=== PATIENT | female | born 1970 | race Caucasian/White ===

== ENCOUNTER → 2024-03-05 10:32 | Outpatient (REF) | payer BC, SELFPAY | LOC: WDC 10:32 | PROVIDERS: ATTENDING PHYSICIAN Obstetrics & Gynecology; FAMILY PHYSICIAN Family Medicine | DX: Z12.31 Encounter for screening mammogram for malignant neoplasm of breast (principal) | CPT/HCPCS: 77063; 77067 ==

== ENCOUNTER → 2025-03-27 13:02 | Outpatient (REF) | payer BC, SELFPAY | LOC: WDC 13:02 | PROVIDERS: ATTENDING PHYSICIAN Obstetrics & Gynecology; FAMILY PHYSICIAN Student in an Organized Health Care Education/Training Program | DX: Z01.419 Encounter for gynecological examination (general) (routine) without abnormal findings (principal) | CPT/HCPCS: 77063; 77067 ==

== ENCOUNTER → 2025-04-02 14:45 | Outpatient (REF) | payer BC, SELFPAY | LOC: WDC 14:45 | PROVIDERS: ATTENDING PHYSICIAN Obstetrics & Gynecology; FAMILY PHYSICIAN Student in an Organized Health Care Education/Training Program | DX: R92.333 Mammographic heterogeneous density, bilateral breasts (principal) | CPT/HCPCS: 76641 ==

== ENCOUNTER → 2025-05-08 08:58 | Outpatient (REF) | payer BC, SELFPAY | LOC: RAD 08:58 | PROVIDERS: ATTENDING PHYSICIAN Student in an Organized Health Care Education/Training Program; FAMILY PHYSICIAN Student in an Organized Health Care Education/Training Program | DX: M25.50 Pain in unspecified joint (principal); M79.641 Pain in right hand; M79.642 Pain in left hand; M79.89 Other specified soft tissue disorders | CPT/HCPCS: 76881 ==